=== PATIENT | male | born 1960 | race Caucasian/White ===

== ENCOUNTER 2018-08-13 03:08 | Outpatient (CLI) | payer BC ==
[2018-08-13 12:50] LABS: Hemoglobin 14.5 g/dL (14.0-18.0); Mean Corpuscular HGB CONC 34.1 g/dL (32.0-36.0); Mean Corpuscular Hemoglobin 33.5 pg (27.0-31.0); Mean Corpuscular Volume 98.2 fL (78.0-98.0); Mean Platelet Volume 8.2 fL (7.4-10.4); Platelet Count 244 thou/uL (130-400); RBC Distribution Width 11.8 % (11.5-14.5); Red Blood Cell (RBC) Count 4.33 mill/uL (4.70-6.10); White Blood Cell (WBC) Count 9.6 thou/uL (4.8-10.8)
[2018-08-13 12:58] LABS: INR-International Normal Ratio 0.9; PTT 28.8 SEC (22.9-36.1); Prothrombin Time 12.6 SEC (12.0-14.7)
--- NOTE | 2018-08-13 17:26 | EKG ---
Test Reason : Blood Pressure : / mmHG Vent. Rate : 069 BPM Atrial Rate : 069 BPM P-R Int : 160 ms QRS Dur : 104 ms QT Int : 384 ms P-R-T Axes : 041 023 028 degrees QTc Int : 411 ms Normal sinus rhythm Interference artifacts Normal ECG No previous ECGs available Confirmed by DR. Heriberto POWERS ([id number]) on 08/13/2018 5:26:12 PM Referred By: AMY Confirmed By:DR. Heriberto POWERS
== END 2018-08-13 03:09 | disposition home or self-care (01) ==
LOC: LABBT 03:08
PROVIDERS: ATTEND Neurological Surgery
DX: Z01.818 Encounter for other preprocedural examination (principal); M48.061 Spinal stenosis, lumbar region without neurogenic claudication
CPT/HCPCS: 85027; 85610; 85730; 93005; 93010

== ENCOUNTER 2018-08-14 05:46 | Day surgery (SDC) | payer BC ==
[2018-08-13 11:09] VITALS: BMI 42.0
--- NOTE | 2018-08-13 11:18 | HP ---
HISTORY OF PRESENT ILLNESS: This is a 58-year-old male who reports to our office for evaluation of low back and bilateral lower extremity pain. The patient reports years of pain, worse in the last year. Pain radiates along the S1 dermatome, today worse on the left, but not always. The patient states that standing is still worse than walking, sitting especially in the car seemed to be quite painful. The patient has seen Dr. Weir for multiple injections without benefit. He has been to the chiropractor with some traction. No formal physical therapy. helped some. REVIEW OF SYSTEMS: Ten-point review of systems has been completed and is negative other than stated in the above HPI. PAST MEDICAL HISTORY: Arthritis, hyperlipidemia, diabetes, hypertension. SURGICAL HISTORY: Previous right hand surgery in 1981. FAMILY HISTORY: Father is , diagnosed with cancer. Mother is diagnosed with diabetes, 1 child , diagnosed with diabetes. SOCIAL HISTORY: The patient states he is a nonsmoker. Does not drink alcohol or use any other illicit drugs. Sexually active. MEDICATIONS: 1. Niacin. 2. Aspirin. 3. Colesevelam HCL. 4. Fenofibrate. 5. Metformin. 6. Meloxicam. 7. Lisinopril. 8. Pravastatin. ALLERGIES: NO KNOWN DRUG ALLERGIES. PHYSICAL EXAMINATION: CONSTITUTIONAL: Well appearing, well nourished, alert. NEUROLOGIC: Alert orient x3. Speech spontaneous and fluent. Normal fund of knowledge. Cranial nerves grossly intact. Lower extremities 5/5 bilateral strength in hip flexion, knee flexion, knee extension, dorsiflexion, plantar flexion, EHL, S1 radiculopathy. Negative single leg raise. Hip rotation bilaterally normal. Tender to palpate lumbar spine. Heel raise with weakness. Deep tendon reflexes diminished bilaterally. Negative Babinski. No clonus. Sensory: Light touch intact. Gait and station: Sit to stand normal. Normal gait. IMAGING: Lateral recess stenosis L4-5, L5-S1. ASSESSMENT AND PLAN: Lumbar radiculopathy, degenerative disk disease and lumbar stenosis with neurogenic claudication. Dr. Carpio has offered surgery, L4-S1 laminectomy. The patient states that he understands the risks of surgery and is willing to proceed. Job ID: [id number]
[2018-08-14] MEDS ORDERED: Sodium Chloride 0.9% 20 ML ONE (06:17)
[2018-08-14] MEDS ORDERED: Bupivacaine HCl 0.5%/Epinephrine 1:200,000/PF 30 ml Vial ONE (06:17)
[2018-08-14] MEDS ORDERED: Thrombin 5000 UNITS/5 ML VIAL ONE (06:17)
[2018-08-14] MEDS ORDERED: Fentanyl 100 MCG/2 ML VIAL ONE (06:22)
--- NOTE | 2018-08-14 10:28 | OP ---
DATE OF PROCEDURE: 08/14/2018 [facility]KEOUT OPERATOR: Steffany Hopkins PA-C PREOPERATIVE INDICATION: Treat pain and prevent neurological deterioration. PREOPERATIVE DIAGNOSES: Two-level lumbar stenosis with severe neurogenic claudication. POSTOPERATIVE DIAGNOSES: Two-level lumbar stenosis with severe neurogenic claudication. OPERATIVE PROCEDURE: Decompressive laminectomy, medial facetectomy, and foraminotomy L4-L5 and L5-S1. PREOPERATIVE MEDICATION: Ancef 2 g IV. DRAIN NUMBER: Zero. DRAIN TYPE: None. DESCRIPTION OF PROCEDURE: The patient was brought to the operating room. General endotracheal anesthesia was induced. The patient was positioned prone on the Seamus frame with the appropriate padding for the chest and hips. A lateral fluoro radiograph was used to plan our incision. The lumbar skin was sterilely prepped and draped. We opened with a 10 blade knife and controlled bleeding with bipolar cautery. We used monopolar cautery to dissect through subcutaneous tissues to the thoracodorsal fascia. We incised the fascia in the midline and it reflected the paraspinal muscles off the spinous process and lamina of L4, L5, and S1. A self-retaining retractor was placed and a lateral fluoro radiograph to confirm the levels upon which we were operating. An Adson rongeurs were used to remove the spinous process of L4, L5, and the superior portion of the sacrum and a high-speed drill was used to thin the laminae. We performed a laminectomy in the midline from the bottom of L5 to the L4 pedicles. We then turned our attention to the top of the sacrum and removed the top 6 mm there. We widened our laminectomy defect with Kerrison rongeurs and performed medial facetectomies at L4-L5 and L5-S1. The operating microscope was brought into the field to the depth of the incision. Under microscopic magnification using microsurgical techniques, we carefully examined the lateral recesses. We performed more of a medial facetectomy until the dura was completely decompressed in each lateral recess. We performed foraminotomies over the exiting L4, L5, and S1 nerve roots on both sides until ball probe could pass through the foramen without impingement. We irrigated copiously with bacitracin irrigation. We waxed the bone edges. We controlled epidural bleeding with gentle bipolar cautery and we infused local anesthetic in the paraspinal muscles. We irrigated the wound copiously with bacitracin irrigation. We removed the operative microscope. We treated the wound with vancomycin powder and we closed the wound in anatomical layers. This was a clean case, no contamination. Job ID: [id number]
[2018-08-14] MEDS ORDERED: Ondansetron PF 4 MG/2 ML Vial ONE (10:38)
[2018-08-14] MEDS ORDERED: Lidocaine 1% PF 5 ML VIAL ONE (10:38)
[2018-08-14] MEDS ORDERED: Ketorolac Tromethamine 30 MG/ML VIAL ONE (10:38)
[2018-08-14] MEDS ORDERED: Metoclopramide HCl 10 MG/2 ML VIAL ONE (10:38)
[2018-08-14] MEDS ORDERED: Rocuronium Bromide 10 MG/ML (10ML VIAL) ONE (10:38)
[2018-08-14] MEDS ORDERED: PHENYLEPHRINE-NS 100 MCG/ML 10 ML SYRINGE ONE (10:38)
[2018-08-14] MEDS ORDERED: Glycopyrrolate 0.2 MG/ML 5 ML SYRINGE ONE (10:38)
[2018-08-14] MEDS ORDERED: ePHEDrine 50 MG/ML VIAL ONE (10:38)
[2018-08-14] MEDS ORDERED: PROPOFOL 200 MG/20 ML VIAL ONE (10:38)
== END 2018-08-14 14:20 | disposition home or self-care (01) ==
LOC: SDC 05:46
PROVIDERS: ATTEND Neurological Surgery
PROC: 00NY0ZZ Release Lumbar Spinal Cord, Open Approach (ICD-10-PCS; principal; 2018-08-14)
DX: M48.062 Spinal stenosis, lumbar region with neurogenic claudication (principal); M51.16 Intervertebral disc disorders with radiculopathy, lumbar region; I10 Essential (primary) hypertension; E11.9 Type 2 diabetes mellitus without complications; E78.5 Hyperlipidemia, unspecified; M19.90 Unspecified osteoarthritis, unspecified site; Z79.82 Long term (current) use of aspirin; Z79.84 Long term (current) use of oral hypoglycemic drugs; Z79.899 Other long term (current) drug therapy
CPT/HCPCS: 76000; J0670; J0690; J1885; J2001; J2405; J2704; J2765; J3010; J3370; J3490